=== PATIENT | male | born 1955 | race Caucasian/White ===

== ENCOUNTER → 2020-01-10 | Outpatient (CLI) | payer MEDICARE ==
[~2020-01-10] MED LIST: ADDERALL10 MG PO; ADDERALL30 MG PO; AMPHETAMINE SAL10 M1 PO; AMPHETAMINE SAL20 M1 PO; ASPIRIN 81M81 MG/TA2 PO; CELEBREX50 MG PO; FLEXERIL 1010 MG/TAB PO; FLONASE NASAL S16 GM NS; GLUMETZA500 MG PO; HORIZANT600 MG PO; IMITREX ST6 MG/0.5 M SC; NEURONTIN600 MG/TAB PO; OXYCONTIN 80MG80 MG PO; PLAVIX 75MG TAB75 MG PO; SINGULAIR 110 MG/TAB PO; TREXIMET 500 MG1 TAB PO; VYTORIN 10 MG-41 TAB PO
== END ==
LOC: COL.RAD 11:18
DX: I77.819 Aortic ectasia, unspecified site (principal)
CPT/HCPCS: Q9967